=== PATIENT | male | born 1985 | race Caucasian/White ===

== ENCOUNTER 2019-12-11 15:30 | Emergency (ER) | payer SELFPAY ==
[~2019-12-11] VITALS: Ht 187.9 cm; Wt 78.5 kg
[2019-12-11] MEDS ORDERED: LIDOCAINE 1% INJ 20 ML 20 ML VIAL ONE (15:47)
--- NOTE | 2019-12-11 15:50 | ED Upper Extremity ---
General Chief Complaint: Laceration Stated Complaint: LEFT HAND LACERATION Source: patient History of Present Illness Date Seen by Provider: Dec 11, 2019 Time Seen by Provider: 15:50 Initial Comments 34 yo male presenting with laceration to his left index finger. 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 This caused a cut on his left index finger and the level of his first MCP joint. He had no numbness or tingling in his index finger. He saw has normal range of motion of his finger. There is no exposed bone. He has tetanus less than 5 years ago. Allergies and Home Medications Allergies Coded Allergies: No Known Drug Allergies (Unverified , 12/11/19) Patient Home Medication List Home Medication List Reviewed: Yes Review of Systems Constitutional: no symptoms reported EENTM: no symptoms reported Respiratory: no symptoms reported Cardiovascular: no symptoms reported Gastrointestinal: no symptoms reported Genitourinary: no symptoms reported Musculoskeletal: other (pain at site of the cut) Skin: see HPI, other (laceration to his 1st mcp joint on left hand) Psychiatric/Neurological: Denies Numbness, Denies Paresthesia, Denies Weakness Past Vbkhcnw-Kjsbsf-Qficez Hx Past Med/Social Hx: Reviewed Nursing Past Med/Soc Hx Physical Exam Vital Signs Vital Signs - First Documented 12/11/19 15:39 Temp 36.4 Pulse 64 Resp 16 B/P (MAP) 118/98 (105) Pulse Ox 96 O2 Delivery Room Air Capillary Refill : Height, Weight, BMI Height: '" Weight: lbs. oz. kg; BMI Method: General Appearance: WD/WN, no apparent distress Cardiovascular: normal peripheral pulses Hand: normal ROM, Left, deformity, soft tissue tenderness (at site of laceration at 1st mcp joint area on left index finger. no numbness. normal ROM of the finger) Neurologic/Tendon: normal sensation, normal motor functions, normal tendon functions Neurologic/Psychiatric: alert, normal mood/affect, oriented x 3 Skin: normal color, warm/dry Procedures/Interventions Wound Location: Upper Extremities (left hand on index finger by 1st mcp) Wound Length (cm): 2.1 Wound's Depth, Shape: sub Q Wound Explored: clean Anesthesia: 1% Lidocaine Volume Anesthetic (ccs): 7 Suture: Ethlion Suture Size: 4-0 Number of Sutures: 6 Layer Closure?: 1 Sterile Dressing Applied?: Yes Progress Wound was anesthetized with 1% plain lidocaine. Then using chlorhexidine and sterile water. The wound was scrubbed and no foreign body was seen. The wound edges were then approximated using 4-0 Ethilon. A total of 6 stitches were placed using simple interrupted stitches. The patient tolerated this well without any immediate complications. A dressing with antibiotic ointment and nonstick gauze was placed. Counseled on follow-up and return precautions. Advised to have stitches removed in approximately 2 weeks or longer. Advised follow up sooner if concerns for infection. Progress/Results/Core Measures Results/Orders My Orders Orders - DANTE EDWARDS MD Lidocaine 1% Inj 20 Ml (Xylocaine 1% Inj (12/11/19 15:47) Vital Signs/I&O Progress Progress Note : Progress Note After obtaining verbal consent from the patient the wound was anesthetized and cleaned. Then closed with sutures. Counseled on follow-up and return precautions. Patient tolerated procedure well without any immediate complication. Departure Impression Primary Impression: Laceration of left index finger w/o foreign body w/o damage to nail Qualified Codes: S61.211A - Laceration without foreign body of left index finger without damage to nail, initial encounter Disposition: 01 HOME, SELF-CARE Condition: Stable Departure-Patient Inst. Decision time for Depature: 16:37 Referrals: NO,LOCAL PHYSICIAN (PCP/Family) Primary Care Physician Patient Instructions: Laceration Repair With Stitches (DC) Add. Discharge Instructions: Keep wound clean and dry for first 24 hours then may wash with soap and water but do not soak it. apply antibiotic ointment 2-3 times a day and cover with bandaid, especially if you might have it get dirty. The stitches can be removed in approximately 2 weeks, or be seen sooner if having more problems/concerns All discharge instructions reviewed with patient and/or family. Voiced understanding. DANTE EDWARDS MD Dec 11, 2019 15:50
[2019-12-11 17:03] VITALS: BP 118/98
== END 2019-12-11 17:03 | disposition home or self-care (01) ==
LOC: ER FS 15:33
DX: S61.211A Laceration without foreign body of left index finger without damage to nail, initial encounter (principal); W26.8XXA Contact with other sharp object(s), not elsewhere classified, initial encounter

== ENCOUNTER 2023-10-18 06:17 | Emergency (ER) | payer SELFPAY ==
[~2023-10-18] VITALS: Ht 187.9 cm; Wt 84.4 kg
[2023-10-18 06:22] VITALS: BP 136/90
--- NOTE | 2023-10-18 06:31 | ED EENT ---
History of Present Illness General Chief Complaint: Dental Problems/Pain Stated Complaint: DENTAL PAIN History of Present Illness Date Seen by Provider: Oct 18, 2023 Time Seen by Provider: 06:25 Initial Comments 38-year-old male is here with complaints of right-sided lower molar tooth pain. Patient thinks he chipped his tooth and also has a cavity in that same tooth. This occurred 1 month ago but today it has progressively increased in pain. Patient is seeing a dentist today morning and is in the ER just for pain control. Allergies and Home Medications Allergies Coded Allergies: No Known Drug Allergies (Unverified , 12/11/19) Patient Home Medication List Home Medication List Reviewed: Yes Review of Systems Review of Systems Constitutional: no symptoms reported Mouth: pain Past Jwdjwvm-Dkzkyv-Hksevj Hx Seasonal Allergies Seasonal Allergies: No Past Medical History Surgeries: No Respiratory: No Cardiac: No Neurological: No Genitourinary: No Gastrointestinal: No Musculoskeletal: No Endocrine: No HEENT: No Cancer: No Psychosocial: No Integumentary: No Physical Exam Height, Weight, BMI Height: '" Weight: lbs. oz. kg; 22.00 BMI Method: General Appearance: WD/WN, mild distress Mouth/Throat: dental tenderness (Right lower second molar tooth pain) Neck: non-tender, full range of motion Neurologic/Psychiatric: alert, oriented x 3 Skin: normal color Procedures/Interventions Suture Size: 4-0 Progress/Results/Core Measures Progress Progress Note : Progress Note 1. DENTAL PAIN: - Toradol injection -Patient is seeing a dentist today, so I will not give an antibiotic at this time. Departure Impression Primary Impression: Pain, dental Disposition: 01 HOME, SELF-CARE Condition: Stable Departure-Patient Inst. Referrals: NO,LOCAL PHYSICIAN (PCP/Family) Primary Care Physician Patient Instructions: Dental Pain (DC) Add. Discharge Instructions: Follow-up with dentist today All discharge instructions reviewed with patient and/or family. Voiced understanding. ELIU HERNÁNDEZ MD Oct 18, 2023 06:31
[2023-10-18] MEDS ORDERED: KETOROLAC INJ 30 MG/ML VIAL ONE (06:38)
[2023-10-18] MEDS ORDERED: KETOROLAC INJ 30 MG/ML VIAL IM ONE (06:45)
[2023-10-18] MEDS ORDERED: KETO10TA PO (17:45)
[2023-10-18] MEDS ORDERED: AMOX500C2 PO (17:45)
[2023-10-18] MEDS ORDERED: METR-145 PO (18:07)
== END 2023-10-18 06:41 | disposition home or self-care (01) ==
LOC: EDUNIT# 06:17 → ER FS 06:18
DX: K08.89 Other specified disorders of teeth and supporting structures (principal)
CPT/HCPCS: 96372; 99284

== ENCOUNTER 2023-10-18 17:30 | Emergency (ER) | payer SELFPAY ==
[~2023-10-18] VITALS: Ht 187 cm; Wt 88.0 kg
[2023-10-18] MEDS ORDERED: AMOXICILLIN 500 MG CAPSULE PO STA (17:39)
[2023-10-18] MEDS ORDERED: ACETAMINOPHEN 500 MG TABLET PO ONE (17:45)
[2023-10-18] MEDS ORDERED: KETO10TA PO (17:45)
[2023-10-18] MEDS ORDERED: KETOROLAC INJ 15 MG/ML VIAL IM ONE (17:45)
[2023-10-18] MEDS ORDERED: AMOX500C2 PO (17:45)
--- NOTE | 2023-10-18 17:46 | ED EENT ---
History of Present Illness General Chief Complaint: Dental Problems/Pain Stated Complaint: DENTAL PAIN Source: patient Exam Limitations: no limitations History of Present Illness Date Seen by Provider: Oct 18, 2023 Time Seen by Provider: 17:33 Initial Comments 38-year-old male with no pertinent past medical history coming in due to dental pain. Started roughly a week ago and it is in his left upper molar and right lower molar. He went to the clinic and had a Toradol shot around 6:30 AM this morning which helped a lot. Is not on any antibiotics. Try to get into the dental clinic, but was unable to today. Denies any fever, swelling, or any other concerns. He states meth does tend to help with the pain, last used 5 days ago. Allergies and Home Medications Allergies Coded Allergies: No Known Drug Allergies (Unverified , 12/11/19) Patient Home Medication List Home Medication List Reviewed: Yes Amoxicillin (Amoxicillin) 500 Mg Capsule, 500 MG PO TID Prescribed by: MIKALA MCCARTHY on 10/18/231744 Ketorolac Tromethamine (Ketorolac Tromethamine) 10 Mg Tablet, 10 MG PO Q8H Prescribed by: MIKALA MCCARTHY on 10/18/231744 Review of Systems Review of Systems Constitutional: No fever Eyes: No Symptoms Reported Ears: No Symptoms Reported Nose: no symptoms reported Mouth: see HPI Throat: no symptoms reported Respiratory: no symptoms reported Cardiovascular: no symptoms reported Past Bjexyjh-Dzwjjc-Yvvrji Hx Patient Social History Substance use?: Yes Substance type: Methamphetamine Seasonal Allergies Seasonal Allergies: No Past Medical History Surgeries: Yes Orthopedic Respiratory: No Cardiac: No Neurological: No Genitourinary: No Gastrointestinal: No Musculoskeletal: No Endocrine: No HEENT: No Cancer: No Psychosocial: No Integumentary: No Physical Exam Vital Signs Vital Signs - First Documented 10/18/23 17:37 Temp 36.6 Pulse 80 Resp 16 B/P (MAP) 138/82 (100) Pulse Ox 100 O2 Delivery Room Air Height, Weight, BMI Height: '" Weight: lbs. oz. kg; 23.00 BMI Method: General Appearance: WD/WN, no apparent distress Eyes: bilateral eye normal inspection Ears: bilateral ear auricle normal Nose: normal inspection Mouth/Throat: dental tenderness (Left upper and right lower molar tenderness with multiple dental caries, no abscess felt); No mandibular swelling, No maxillary swelling, No pharynx swelling, No tonsillar swelling, No trismus, No uvula swelling, No voice changes Neck: non-tender, full range of motion, supple, normal inspection Cardiovascular: regular rate, rhythm Respiratory: chest non-tender, lungs clear, normal breath sounds Neurologic/Psychiatric: no motor/sensory deficits, alert, normal mood/affect Skin: normal color, warm/dry Procedures/Interventions Suture Size: 4-0 Progress/Results/Core Measures Results/Orders My Orders Orders - MIKALA MCCARTHY MD Ketorolac Injection (Ketorolac Injection (10/18/23 17:45) Amoxicillin Capsule (Amoxicillin Capsule (10/18/23 17:39) Acetaminophen Tablet (Acetaminophen Ta (10/18/23 17:45) Medications Given in ED Current Medications Medications Dose Ordered Sig/Christiana Route Start Time Stop Time Status Last Admin Dose Admin Acetaminophen 1,000 mg ONCE ONCE PO 10/18/23 17:45 10/18/23 17:46 DC 10/18/23 17:48 1,000 MG Ketorolac Tromethamine 15 mg ONCE ONCE IM 10/18/23 17:45 10/18/23 17:46 DC 10/18/23 17:47 15 MG Vital Signs/I&O 10/18/23 10/18/23 17:37 17:52 Temp 36.6 36.6 Pulse 80 80 Resp 16 16 B/P (MAP) 138/82 (100) 138/82 Pulse Ox 100 100 O2 Delivery Room Air Room Air Progress Progress Note : Progress Note 38-year-old male presenting for dental pain. ABCs were intact and vitals were stable on presentation. Physical exam with no abscess, multiple dental caries that are tender. Antibiotics given here as well as a Toradol shot. Prescrip tion will be sent and he can follow-up with a dentist as an outpatient. Departure Impression Primary Impression: Pain, dental Disposition: 01 HOME, SELF-CARE Condition: Stable Departure-Patient Inst. Decision time for Depature: 17:50 Referrals: SELFMYLES MD (PCP/Family) Primary Care Physician Patient Instructions: Dental Pain (DC) Add. Discharge Instructions: Please call [facility] again tomorrow to try to get in with the dentist as you stated. Antibiotics were sent to your pharmacy as well as Toradol which you can take every 8 hours. Scripts Metronidazole (Metronidazole) 500 Mg Tablet 2000 MG PO ONCE for 1 Day, #4 TAB 0 Refills Prov: MIKALA MCCARTHY MD 10/18/23 Amoxicillin (Amoxicillin) 500 Mg Capsule 500 MG PO TID for 7 Days, #21 CAP 0 Refills Prov: MIKALA MCCARTHY MD 10/18/23 Ketorolac Tromethamine (Ketorolac Tromethamine) 10 Mg Tablet 10 MG PO Q8H for 3 Days, #9 TAB Prov: MIKALA MCCARTHY MD 10/18/23 Work/School Note: Work Release Form Date Seen in the Emergency Department: Oct 18, 2023 Return to Work: Oct 19, 2023 Restrictions: No Restrictions MIKALA MCCARTHY MD Oct 18, 2023 17:45
[2023-10-18 17:52] VITALS: BP 138/82
[2023-10-18] MEDS ORDERED: METR-145 PO (18:07)
== END 2023-10-18 17:52 | disposition home or self-care (01) ==
LOC: EDUNIT# 17:30 → ER FS 17:32
DX: K08.89 Other specified disorders of teeth and supporting structures (principal)
CPT/HCPCS: 96372; 99284